=== PATIENT | male | born 1990 | race Caucasian/White ===

== ENCOUNTER 2022-08-20 16:48 | Emergency (ER) | payer SELFPAY ==
[~2022-08-20] VITALS: Ht 177.8 cm; Wt 106.6 kg
[2022-08-20] MEDS ORDERED: BACTRIM DS TAB1 EACH PO (17:46)
[2022-08-20] MEDS ORDERED: PREDNISONE50 MG PO (17:46)
[2022-08-20] MEDS ORDERED: PROCTOCORT28.4 GM TOP (17:46)
[2022-08-20] MEDS ORDERED: ELIMITE60 GM TOP (17:47)
== END 2022-08-20 18:03 | disposition home or self-care (01) ==
LOC: FSED 16:55
DX: R50.9 Fever, unspecified (principal); R21 Rash and other nonspecific skin eruption
CPT/HCPCS: 99283